=== PATIENT | male | born 1975 | race Caucasian/White ===

== ENCOUNTER → 2017-10-07 | Outpatient (CLI) | payer OTHER | END | disposition home or self-care (01) | LOC: RAD 09:44 | DX: J40 Bronchitis, not specified as acute or chronic (principal) ==

== ENCOUNTER 2018-01-27 12:07 | Emergency (ER) | payer OTHER ==
[~2018-01-27] VITALS: Ht 170.1 cm; Wt 108.9 kg
--- NOTE | ~2018-01-27 | EKG ---
[place], [place] ELECTROCARDIOGRAM REPORT NAME: MICHAELA AGUERO UNIT #: [id number] ROOM: DOCTOR: EPIPHANY DRAFT REPORT BIRTHDATE: [birth year] [facility] Test Date: 2018-01-27 Test Time: 13:33:33 Pat Name: MICHAELA AGUERO Department: Room: Gender: Engineering Laboratory Technician: : [id number] Requested By: MELVA LFORES PA-C Order Number: [id number] Reading MD: Alcides Bowen MD Measurements Intervals [place] Rate: 83 P: 21 WI: 164 QRS: -52 QRSD: 95 T: 64 QT: 368 QTc: 433 Interpretive Statements Sinus rhythm Left anterior fascicular block Electronically Signed On 01-28-2018 13:29:16 PDT by Alcides Bowen MD CM:EKGRPT:ELECTROCARDIOGRAM REPORT [id number] MELVA FLORES PA-C EPIPHANY DRAFT REPORT MELVA FLORES PA-C
[2018-01-27 13:26] LABS: BASO % 0.3 % (0.0-1.0); EOS # 0.2 10*3/uL (0.0-0.4); EOS % 2.8 % (1.0-4.0); LYMPH # 1.7 10*3/uL (1.3-4.4); LYMPH % 24.2 % (27.0-41.0); MEAN CELL VOLUME 94.3 fl (80.0-94.0); MEAN CORPUSCULAR HGB 31.4 pg (27.0-31.0); MEAN CORPUSCULAR HGB CONC 33.3 g/dl (33.0-37.0); MEAN PLATELET VOLUME 10.2 fl (9.6-12.3); MONO # 0.7 10*3/uL (0.1-1.0); MONO % 9.2 % (3.0-9.0); NEUT # 4.5 10*3/uL (2.3-7.9); NEUT % 63.1 % (47.0-73.0); PLATELET COUNT AUTOMATED 218 10*3/uL (130-400); RED BLOOD COUNT 4.77 10*6/uL (4.50-5.90); RED CELL DISTRI WIDTH 12.3 % (0-14.5); WHITE BLOOD COUNT 7.2 10*3/uL (4.8-10.8)
[2018-01-27 13:45] LABS: ALBUMIN 3.8 gm/dl (3.1-4.5); ALKALINE PHOSPHATASE 101 U/L (45-117); BUN 11 mg/dl (7-24); CHLORIDE 103 mmol/L (98-107); CREATININE 0.96 mg/dL (0.70-1.30); POTASSIUM 3.8 mmol/L (3.5-5.1); SGOT/AST 42 IU/L (3-35); SGPT/ALT 80 U/L (12-78); SODIUM 139 mmol/L (136-145)
[2018-01-27 13:46] LABS: TROPONIN I < 0.015 ng/ml (<0.045)
[2018-01-27] MEDS ORDERED: ZITHROMAX250 MG PO (15:57)
[2018-01-27] MEDS ORDERED: LISINOPRIL5 MG PO (15:57)
[2018-01-27] MEDS ORDERED: TESSALON PERLE100 M1 PO (15:57)
== END 2018-01-27 15:59 | disposition home or self-care (01) ==
LOC: ED 12:07
PROVIDERS: Physician Assistant
DX: J06.9 Acute upper respiratory infection, unspecified (principal); H92.02 Otalgia, left ear; I10 Essential (primary) hypertension; R79.1 Abnormal coagulation profile; Z88.6 Allergy status to analgesic agent

== ENCOUNTER → 2020-09-02 | Outpatient (CLI) | payer BC ==
[~2020-09-02] MED LIST: LISINOPRIL5 MG PO; TESSALON PERLE100 M1 PO; ZITHROMAX250 MG PO
== END | disposition home or self-care (01) ==
LOC: LAB 15:38 → RAD 15:38
PROVIDERS: ATTEND Family Medicine
DX: I51.7 Cardiomegaly (principal); R06.02 Shortness of breath

== ENCOUNTER → 2020-12-13 | Outpatient (CLI) | payer BC | END | disposition home or self-care (01) | LOC: MRI 13:08 | PROVIDERS: ATTEND Family Medicine | DX: G35 Multiple sclerosis (principal); R20.2 Paresthesia of skin; R39.81 Functional urinary incontinence ==

== ENCOUNTER → 2021-01-08 | Outpatient (CLI) | payer OTHER | END | disposition home or self-care (01) | LOC: LAB 14:32 | PROVIDERS: ATTEND Psychiatry & Neurology Neurology | DX: M50.30 Other cervical disc degeneration, unspecified cervical region (principal); M48.02 Spinal stenosis, cervical region; M25.78 Osteophyte, vertebrae; M89.38 Hypertrophy of bone, other site ==

== ENCOUNTER 2021-12-06 14:09 | Emergency (ER) | payer OTHER ==
[~2021-12-06] VITALS: Ht 170.1 cm; Wt 115.7 kg
== END 2021-12-06 15:34 | disposition left against medical advice (07) ==
LOC: ED 14:09
DX: R50.9 Fever, unspecified (principal); R19.7 Diarrhea, unspecified; R10.84 Generalized abdominal pain; Z53.21 Procedure and treatment not carried out due to patient leaving prior to being seen by health care provider